=== PATIENT | female | born 1955 ===

== ENCOUNTER 2022-04-03 01:17 | Inpatient (IN) | payer MEDICARE, OTHER ==
[2022-04-03 02:16] VITALS: BMI 25.7
[2022-04-03] MEDS ORDERED: POLYETHYLENE GLYCOL (HEALTHYLAX) 3350 17 GM PACKET PO PRN (02:40)
[2022-04-03] MEDS ORDERED: BENZOCAINE/MENTHOL (CHLORASEPTIC ) LOZENGE MM PRN (02:40)
[2022-04-03] MEDS ORDERED: LOPERAMIDE HCL 2 MG CAPSULE PO PRN (02:40)
[2022-04-03] MEDS ORDERED: hydrOXYzine PAMOATE 25 MG CAPSULE (FP) PO PRN (02:40)
[2022-04-03] MEDS ORDERED: MAG HYDROX/AL HYDROX/SIMETH 30 ML UNIT-DOSE CUP PO PRN (02:40)
[2022-04-03] MEDS ORDERED: ACETAMINOPHEN 325 MG TABLET (FP) PO PRN ×3 (02:40→11:19)
[2022-04-03] MEDS ORDERED: ONDANSETRON *ODT* 4 MG TABLET SL PRN (02:40)
[2022-04-03] MEDS ORDERED: NALOXONE HCL (KLOXXADO) 8 MG SPRAY NS PRN (02:40)
[2022-04-03] MEDS ORDERED: BISMUTH SUBSALICYLATE 524 MG/30 ML PO PRN (02:40)
[2022-04-03] MEDS ORDERED: IBUPROFEN 600 MG TABLET (FP) PO PRN (02:40)
[2022-04-03] MEDS ORDERED: DICYCLOMINE HCL 10 MG CAPSULE PO PRN (02:40)
[2022-04-03] MEDS ORDERED: MAGNESIUM HYDROX 2400MG/30ML ORAL SUSPENSION 30 ML CUP PO PRN (02:40)
[2022-04-03 09:38] VITALS: BP 131/71; PULSE 73; RESP 18; TEMP 98.2
[2022-04-03] MEDS ORDERED: PRENATAL VITAMINS W/ FOLIC ACID TABLET (FP) PO SCH (10:00)
[2022-04-03] MEDS ORDERED: diazePAM 5 MG TABLET PO PRN (11:13)
[2022-04-03] MEDS ORDERED: MELATONIN 5 MG TABLETS PO SCH (22:00)
[2022-04-03] MEDS ORDERED: THIAMINE HCL 100 MG TABLET (FP) PO SCH (22:00)
== END 2022-04-03 14:15 | disposition home or self-care (01) | DRG 897 ==
LOC: YASAS 01:17 → Y6N 04:08
PROVIDERS: ADMIT Allergy & Immunology; ATTEND Allergy & Immunology
PROC: HZ2ZZZZ Detoxification Services for Substance Abuse Treatment (ICD-10-PCS; principal; 2022-04-03)
DX: F11.23 Opioid dependence with withdrawal (principal); F13.20 Sedative, hypnotic or anxiolytic dependence, uncomplicated; F19.280 Other psychoactive substance dependence with psychoactive substance-induced anxiety disorder; F19.282 Other psychoactive substance dependence with psychoactive substance-induced sleep disorder; K21.9 Gastro-esophageal reflux disease without esophagitis; M54.2 Cervicalgia; M54.50 Low back pain, unspecified; G89.29 Other chronic pain; Z96.643 Presence of artificial hip joint, bilateral; Z28.310 Unvaccinated for COVID-19; Z28.9 Immunization not carried out for unspecified reason; Z56.0 Unemployment, unspecified
CPT/HCPCS: 36415; 86780; 87811; 93005; 93010; C9803-CS; U0003; U0005